=== PATIENT | female | born 1950 | race Caucasian/White ===

== ENCOUNTER 2016-06-21 11:03 | Inpatient (IN) | payer OTHER ==
[~2016-06-21] VITALS: Ht 304.8 cm; Wt 110.1 kg
[~2016-06-21 11:03] MED LIST: AMBIEN CR12.5 MG PO; ATORVASTATIN CA80 MG PO; CLEOCIN300 MG PO; DOXYCYCLINE MO100 MG PO; FERROUS SULFAT325 MG PO; FLORANEX GRANU1 EACH PO; FUROSEMIDE20 MG PO; HYDROCODON-ACE1 EAC7 PO; KEFLEX500 MG PO; LEVOTHYROXINE200 MC1 PO; LISINOPRIL20 MG PO; LYRICA75 MG PO; METFORMIN HCL500 MG PO; MOTRIN400 MG PO; MOTRIN600 MG PO; PEN-VEE K,VEET500 MG PO; ROPINIROLE HCL5 MG PO; ZOLPIDEM TART12.5 MG PO
[2016-06-21 12:34] LABS: HEMATOCRIT 35.1 % (36.0-46.0); MCH 26.9 PG (29.0-34.0); MCHC 32.8 G/DL (30.0-36.0); MCV 82.2 FL (83-99); MEAN PLAT.VOLUME 11.1 uM^3 (9.5-12.4); PLATELET COUNT 133 K/uL (156-360); RBC DIS.WIDTH-CV 14.6 % (11.8-14.6); RBC DIS.WIDTH-SD 42.6 % (39-53); RED BLOOD COUNT 4.27 M/uL (3.80-5.20)
[2016-06-21 12:42] LABS: CHLORIDE 100 mEq/L (99-109); POTASSIUM 3.3 mEq/L (3.7-5.4); SODIUM 139 mEq/L (136-147)
[2016-06-21 12:44] LABS: GLUCOSE 130 mg/dL (70-99)
[2016-06-21 12:45] LABS: ANION GAP 13 MEQ/L (2-14)
[2016-06-21 12:48] LABS: GFR ESTIMATE (CALCULATED) 40 mL/min/; UREA NITROGEN (BUN) 28 mg/dL (9-23)
[2016-06-21 12:55] LABS: TROP-I INTERPRETATION NEGATIVE; TROPONIN-I 0.19 ng/mL (0.0-0.30)
[2016-06-21] MEDS ORDERED: LYRICA75 MG PO (13:19)
[2016-06-21] MEDS ORDERED: METFORMIN HCL500 MG PO (13:22)
[2016-06-21] MEDS ORDERED: MYRBETRIQ50 MG PO (13:25)
[2016-06-21] MEDS ORDERED: LIOTHYRONINE SO5 MCG PO (13:27)
[2016-06-21] MEDS ORDERED: ROPINIROLE PO (13:27)
[2016-06-21] MEDS ORDERED: CYMBALTA60 MG PO (13:56)
[2016-06-21 14:10] LABS: D-DIMER ELISA > 4.00 mg/L FEU (< 0.57)
[2016-06-21 14:48] LABS: TROP-I INTERPRETATION NEGATIVE; TROPONIN-I 0.15 ng/mL (0.0-0.30)
[2016-06-21 17:42] LABS: TOTAL BILIRUBIN 5.7 mg/dL (0.0-1.0)
[2016-06-21 17:43] LABS: ALKALINE PHOSPHATASE 239 IU/L (3-129)
[2016-06-21 17:45] LABS: DIRECT BILIRUBIN 4.1 mg/dL (0.0-0.3)
[2016-06-21 17:46] LABS: LIPASE 2 U/L (1.0-51.0)
[2016-06-21 20:52] LABS: INTER. NORMALIZED RATIO 1.1; PROTHROMBIN TIME 11.1 (9.2-11.2); PTT 26.4 (25-32)
[2016-06-22 01:17] VITALS: BP 156/70
[2016-06-22 06:03] LABS: ALKALINE PHOSPHATASE 203 IU/L (3-129); ANION GAP 8 MEQ/L (2-14); CHLORIDE 101 MEQ/L (99-109); GFR ESTIMATE (CALCULATED) 48 mL/min/; GLUCOSE 112 mg/dL (70-99); MAGNESIUM 1.9 mg/dl (1.3-2.7); POTASSIUM 3.6 MEQ/L (3.7-5.4); SAMPLE HEMOLYSIS CHECK 0; SAMPLE ICTERIC CHECK 1; SAMPLE LIPEMIA CHECK 0; SODIUM 138 MEQ/L (136-147); TOTAL BILIRUBIN 4.8 MG/DL (0.0-1.0); UREA NITROGEN (BUN) 21 mg/dL (9-23)
[2016-06-22 06:15] LABS: HEMATOCRIT 30.7 % (36.0-46.0); MCH 26.3 PG (29.0-34.0); MCHC 31.6 G/DL (30.0-36.0); MCV 83.2 FL (83-99); MEAN PLAT.VOLUME 11.5 uM^3 (9.5-12.4); PLATELET COUNT 122 K/uL (156-360); RBC DIS.WIDTH-CV 14.8 % (11.8-14.6); RBC DIS.WIDTH-SD 45.5 % (39-53); RED BLOOD COUNT 3.69 M/uL (3.80-5.20)
[2016-06-22 06:16] LABS: WHITE BLOOD COUNT 5.5 K/uL (4.1-10.2)
[2016-06-22 07:40] VITALS: BP 154/78
[2016-06-22 16:00] VITALS: BP 159/85
[2016-06-22 17:11] LABS: PROTHROMBIN TIME 10.5 (9.2-11.2); PTT 26.1 (25-32)
[2016-06-22 19:35] VITALS: BP 167/72
[2016-06-22 20:50] LABS: INTER. NORMALIZED RATIO 1.1; PROTHROMBIN TIME 11.3 (9.2-11.2)
[2016-06-22 21:02] LABS: PTT 84.9 (25-32)
[2016-06-22 23:36] VITALS: BP 130/62
[2016-06-23 03:47] VITALS: BP 146/68
[2016-06-23 07:00] VITALS: BP 167/75
[2016-06-23 07:19] VITALS: BP 168/84
[2016-06-23 07:34] LABS: EOSINOPHIL (%) 4.8 % (0-5); EOSINOPHIL COUNT 0.2 K/uL (0-0.3); HEMATOCRIT 32.6 % (36.0-46.0); IMMATURE GRANULOCYTE (%) 0.6 % (0.0-0.7); LYMPHOCYTE COUNT 1.2 K/uL (1.0-2.8); MCH 25.9 PG (29.0-34.0); MCV 83.6 FL (83-99); MEAN PLAT.VOLUME 11.3 uM^3 (9.5-12.4); MONOCYTE (%) 9.4 % (3-12); MONOCYTE COUNT 0.5 K/uL (0-0.8); NEUTROPHIL (%) 60.3 % (45-76); PLATELET COUNT 143 K/uL (156-360); RBC DIS.WIDTH-CV 14.9 % (11.8-14.6); RBC DIS.WIDTH-SD 45.6 % (39-53)
[2016-06-23 08:26] LABS: ALKALINE PHOSPHATASE 212 IU/L (3-129); ANION GAP 15 MEQ/L (2-14); CHLORIDE 94 MEQ/L (99-109); DIRECT BILIRUBIN 3.2 mg/dL (0.0-0.3); GFR ESTIMATE (CALCULATED) 53 mL/min/; GLUCOSE 113 mg/dL (70-99); POTASSIUM 3.2 MEQ/L (3.7-5.4); SAMPLE HEMOLYSIS CHECK 0; SAMPLE ICTERIC CHECK 1; SAMPLE LIPEMIA CHECK 0; SODIUM 137 MEQ/L (136-147); TOTAL BILIRUBIN 4.9 MG/DL (0.0-1.0); UREA NITROGEN (BUN) 14 mg/dL (9-23)
[2016-06-23 08:43] LABS: FERRITIN 261 NG/ML (10-291)
[2016-06-23 09:50] VITALS: BP 154/76
[2016-06-23 11:50] VITALS: BP 168/74
[2016-06-23 17:20] LABS: POINT-OF-CARE METER ID UU13113675
[2016-06-23 20:37] VITALS: BP 152/74
[2016-06-24] VITALS (7 sets, daily range): BP systolic 128–165; BP diastolic 58–75
[2016-06-24 07:55] LABS: HEMATOCRIT 29.1 % (36.0-46.0); MCH 26.8 PG (29.0-34.0); MCV 83.9 FL (83-99); MEAN PLAT.VOLUME 11.8 uM^3 (9.5-12.4); PLATELET COUNT 148 K/uL (156-360); RBC DIS.WIDTH-CV 15.2 % (11.8-14.6); RBC DIS.WIDTH-SD 46.1 % (39-53); RED BLOOD COUNT 3.47 M/uL (3.80-5.20)
[2016-06-24 08:20] LABS: ALKALINE PHOSPHATASE 211 IU/L (3-129); ANION GAP 11 MEQ/L (2-14); CHLORIDE 95 MEQ/L (99-109); GFR ESTIMATE (CALCULATED) 48 mL/min/; GLUCOSE 115 mg/dL (70-99); POTASSIUM 3.6 MEQ/L (3.7-5.4); SAMPLE HEMOLYSIS CHECK 0; SAMPLE ICTERIC CHECK 1; SAMPLE LIPEMIA CHECK 0; SODIUM 139 MEQ/L (136-147); UREA NITROGEN (BUN) 18 mg/dL (9-23)
[2016-06-24 08:24] LABS: TOTAL BILIRUBIN 3.9 MG/DL (0.0-1.0)
[2016-06-25 03:25] VITALS: BP 166/68
[2016-06-25 07:09] LABS: ALKALINE PHOSPHATASE 183 IU/L (3-129); ANION GAP 10 MEQ/L (2-14); CHLORIDE 98 MEQ/L (99-109); EOSINOPHIL (%) 1.1 % (0-5); EOSINOPHIL COUNT 0.1 K/uL (0-0.3); GFR ESTIMATE (CALCULATED) > 59 mL/min/; GLUCOSE 111 mg/dL (70-99); IMMATURE GRANULOCYTE (%) 1.6 % (0.0-0.7); IMMATURE GRANULOCYTE COUNT 0.1 K/uL; LYMPHOCYTE COUNT 0.9 K/uL (1.0-2.8); MCH 26.1 PG (29.0-34.0); MCHC 31.1 G/DL (30.0-36.0); MCV 83.9 FL (83-99); MEAN PLAT.VOLUME 12.2 uM^3 (9.5-12.4); MONOCYTE (%) 4.8 % (3-12); MONOCYTE COUNT 0.4 K/uL (0-0.8); NEUTROPHIL (%) 81.1 % (45-76); NEUTROPHIL COUNT 6.6 K/uL (1.8-6.4); PLATELET COUNT 156 K/uL (156-360); POTASSIUM 4.3 MEQ/L (3.7-5.4); RBC DIS.WIDTH-CV 15.5 % (11.8-14.6); RBC DIS.WIDTH-SD 47.6 % (39-53); RED BLOOD COUNT 3.22 M/uL (3.80-5.20); SAMPLE HEMOLYSIS CHECK 0; SAMPLE ICTERIC CHECK 1; SAMPLE LIPEMIA CHECK 0; SODIUM 139 MEQ/L (136-147); TOTAL BILIRUBIN 3.8 MG/DL (0.0-1.0); UREA NITROGEN (BUN) 15 mg/dL (9-23); WHITE BLOOD COUNT 8.1 K/uL (4.1-10.2)
[2016-06-25 08:03] VITALS: BP 126/69
[2016-06-25 11:52] VITALS: BP 130/60
[2016-06-25 16:16] VITALS: BP 134/63
[2016-06-25 19:45] VITALS: BP 159/65
[2016-06-25 21:14] LABS: POINT-OF-CARE USER ID AHSUCEG
[2016-06-26] VITALS (7 sets, daily range): BP systolic 116–148; BP diastolic 55–68
[2016-06-26 06:12] LABS: HEMATOCRIT 26.6 % (36.0-46.0); MCH 27.2 PG (29.0-34.0); MCV 85.3 FL (83-99); MEAN PLAT.VOLUME 11.6 uM^3 (9.5-12.4); NRBC (%) 0.4 /100 WBC (0-0); PLATELET COUNT 165 K/uL (156-360); RBC DIS.WIDTH-CV 15.8 % (11.8-14.6); RBC DIS.WIDTH-SD 48.6 % (39-53); RED BLOOD COUNT 3.12 M/uL (3.80-5.20); WHITE BLOOD COUNT 5.7 K/uL (4.1-10.2)
[2016-06-26 06:33] LABS: ALKALINE PHOSPHATASE 161 IU/L (3-129); ANION GAP 9 MEQ/L (2-14); CHLORIDE 93 MEQ/L (99-109); GFR ESTIMATE (CALCULATED) > 59 mL/min/; GLUCOSE 89 mg/dL (70-99); POTASSIUM 3.7 MEQ/L (3.7-5.4); SAMPLE HEMOLYSIS CHECK 0; SAMPLE ICTERIC CHECK 1; SAMPLE LIPEMIA CHECK 0; SODIUM 136 MEQ/L (136-147); TOTAL BILIRUBIN 3.8 MG/DL (0.0-1.0); UREA NITROGEN (BUN) 15 mg/dL (9-23)
[2016-06-26 06:39] LABS: MAGNESIUM 1.3 mg/dl (1.3-2.7)
[2016-06-26 06:49] LABS: EOSINOPHIL (%) 1.9 % (0-5); EOSINOPHIL COUNT 0.1 K/uL (0-0.3); IMMATURE GRANULOCYTE (%) 3.9 % (0.0-0.7); IMMATURE GRANULOCYTE COUNT 0.2 K/uL; LYMPHOCYTE COUNT 0.9 K/uL (1.0-2.8); MONOCYTE (%) 7.4 % (3-12); MONOCYTE COUNT 0.4 K/uL (0-0.8); NEUTROPHIL (%) 71.2 % (45-76); NEUTROPHIL COUNT 4.1 K/uL (1.8-6.4)
[2016-06-26 07:38] LABS: HEMATOLOGY COMMENT 1 SMEAR COMPATIBLE; PLAT.SUFFICIENCY ADEQUATE
[2016-06-27 03:12] VITALS: BP 112/53
[2016-06-27 06:53] LABS: HEMATOCRIT 27.8 % (36.0-46.0); MCH 25.8 PG (29.0-34.0); MCHC 30.2 G/DL (30.0-36.0); MCV 85.3 FL (83-99); MEAN PLAT.VOLUME 11.6 uM^3 (9.5-12.4); PLATELET COUNT 209 K/uL (156-360); RBC DIS.WIDTH-SD 49.8 % (39-53); RED BLOOD COUNT 3.26 M/uL (3.80-5.20); WHITE BLOOD COUNT 4.3 K/uL (4.1-10.2)
[2016-06-27 07:18] LABS: ALKALINE PHOSPHATASE 179 IU/L (3-129); ANION GAP 7 MEQ/L (2-14); CHLORIDE 93 MEQ/L (99-109); GFR ESTIMATE (CALCULATED) > 59 mL/min/; GLUCOSE 111 mg/dL (70-99); SAMPLE HEMOLYSIS CHECK 0; SAMPLE ICTERIC CHECK 0; SAMPLE LIPEMIA CHECK 0; SODIUM 136 MEQ/L (136-147); UREA NITROGEN (BUN) 14 mg/dL (9-23)
[2016-06-27 07:19] LABS: POTASSIUM 4.5 MEQ/L (3.7-5.4); TOTAL BILIRUBIN 2.7 MG/DL (0.0-1.0)
[2016-06-27 08:00] VITALS: BP 137/65
[2016-06-27 11:39] VITALS: BP 142/67
[2016-06-27 15:50] VITALS: BP 113/56
[2016-06-27 20:12] VITALS: BP 134/61
[2016-06-28] VITALS (7 sets, daily range): BP systolic 110–131; BP diastolic 56–98
[2016-06-28 07:42] LABS: HEMATOCRIT 26.1 % (36.0-46.0); MCH 26.9 PG (29.0-34.0); MCHC 31.8 G/DL (30.0-36.0); MCV 84.7 FL (83-99); PLATELET COUNT 167 K/uL (156-360); RBC DIS.WIDTH-SD 49.5 % (39-53); RED BLOOD COUNT 3.08 M/uL (3.80-5.20); WHITE BLOOD COUNT 3.6 K/uL (4.1-10.2)
[2016-06-28 08:06] LABS: ALKALINE PHOSPHATASE 170 IU/L (3-129); ANION GAP 8 MEQ/L (2-14); CHLORIDE 91 MEQ/L (99-109); GFR ESTIMATE (CALCULATED) > 59 mL/min/; GLUCOSE 126 mg/dL (70-99); POTASSIUM 3.7 MEQ/L (3.7-5.4); SAMPLE HEMOLYSIS CHECK 0; SAMPLE ICTERIC CHECK 0; SAMPLE LIPEMIA CHECK 0; SODIUM 137 MEQ/L (136-147); UREA NITROGEN (BUN) 12 mg/dL (9-23)
[2016-06-28 08:07] LABS: MAGNESIUM 1.9 mg/dl (1.3-2.7); TOTAL BILIRUBIN 1.8 MG/DL (0.0-1.0)
[2016-06-28 08:49] LABS: EOSINOPHIL (%) 3.9 % (0-5); EOSINOPHIL COUNT 0.1 K/uL (0-0.3); HEMATOLOGY COMMENT 1 SMEAR COMPATIBLE; IMMATURE GRANULOCYTE (%) 2.8 % (0.0-0.7); IMMATURE GRANULOCYTE COUNT 0.1 K/uL; LYMPHOCYTE COUNT 0.9 K/uL (1.0-2.8); MONOCYTE (%) 12.7 % (3-12); MONOCYTE COUNT 0.5 K/uL (0-0.8); NEUTROPHIL (%) 55.9 % (45-76); USER ID STC
[2016-06-28 16:30] LABS: POINT-OF-CARE METER ID UU14162508
[2016-06-28 22:31] LABS: POINT-OF-CARE METER ID UU14162508
[2016-06-29 07:15] LABS: HEMATOCRIT 28.1 % (36.0-46.0); MCH 25.8 PG (29.0-34.0); MCHC 30.2 G/DL (30.0-36.0); MCV 85.4 FL (83-99); MEAN PLAT.VOLUME 11.6 uM^3 (9.5-12.4); PLATELET COUNT 184 K/uL (156-360); RBC DIS.WIDTH-SD 49.9 % (39-53); RED BLOOD COUNT 3.29 M/uL (3.80-5.20)
[2016-06-29 07:36] LABS: ALKALINE PHOSPHATASE 170 IU/L (3-129); ANION GAP 10 MEQ/L (2-14); CHLORIDE 91 MEQ/L (99-109); GFR ESTIMATE (CALCULATED) > 59 mL/min/; GLUCOSE 110 mg/dL (70-99); POTASSIUM 3.9 MEQ/L (3.7-5.4); SAMPLE HEMOLYSIS CHECK 0; SAMPLE ICTERIC CHECK 0; SAMPLE LIPEMIA CHECK 0; SODIUM 139 MEQ/L (136-147); TOTAL BILIRUBIN 1.6 MG/DL (0.0-1.0); UREA NITROGEN (BUN) 9 mg/dL (9-23)
[2016-06-29 08:04] VITALS: BP 144/66
[2016-06-29 08:14] LABS: HEMATOLOGY COMMENT 1 SMEAR COMPATIBLE
[2016-06-29 08:15] LABS: EOSINOPHIL (%) 3.3 % (0-5); EOSINOPHIL COUNT 0.1 K/uL (0-0.3); IMMATURE GRANULOCYTE (%) 2.5 % (0.0-0.7); IMMATURE GRANULOCYTE COUNT 0.1 K/uL; LYMPHOCYTE COUNT 0.9 K/uL (1.0-2.8); MONOCYTE (%) 10.3 % (3-12); MONOCYTE COUNT 0.4 K/uL (0-0.8); NEUTROPHIL (%) 60.7 % (45-76); NEUTROPHIL COUNT 2.4 K/uL (1.8-6.4)
[2016-06-29 11:16] VITALS: BP 117/59
[2016-06-29 11:34] LABS: POINT-OF-CARE METER ID UU14162508
[2016-06-29 16:30] VITALS: BP 129/64
[2016-06-29 17:59] LABS: POINT-OF-CARE METER ID UU14162508
[2016-06-29 19:56] VITALS: BP 126/60
[2016-06-30] VITALS (7 sets, daily range): BP systolic 103–146; BP diastolic 51–65
[2016-06-30 00:07] LABS: POINT-OF-CARE METER ID UU14162508
[2016-06-30 01:40] LABS: INTER. NORMALIZED RATIO 1.1; PROTHROMBIN TIME 10.9 (9.2-11.2); PTT 28.3 (25-32)
[2016-06-30 06:21] LABS: POINT-OF-CARE METER ID UU14162508
[2016-06-30 06:58] LABS: HEMATOCRIT 25.6 % (36.0-46.0); MCH 26.2 PG (29.0-34.0); MCHC 30.9 G/DL (30.0-36.0); MCV 84.8 FL (83-99); MEAN PLAT.VOLUME 11.3 uM^3 (9.5-12.4); NRBC (%) 0.3 /100 WBC (0-0); PLATELET COUNT 189 K/uL (156-360); RBC DIS.WIDTH-CV 16.1 % (11.8-14.6); RBC DIS.WIDTH-SD 50.5 % (39-53); RED BLOOD COUNT 3.02 M/uL (3.80-5.20)
[2016-06-30 07:14] LABS: EOSINOPHIL COUNT 0.1 K/uL (0-0.3); IMMATURE GRANULOCYTE (%) 2.6 % (0.0-0.7); IMMATURE GRANULOCYTE COUNT 0.1 K/uL; LYMPHOCYTE COUNT 1.1 K/uL (1.0-2.8); MONOCYTE (%) 9.8 % (3-12); MONOCYTE COUNT 0.5 K/uL (0-0.8); NEUTROPHIL (%) 64.1 % (45-76); NEUTROPHIL COUNT 3.2 K/uL (1.8-6.4)
[2016-06-30 07:21] LABS: ALKALINE PHOSPHATASE 159 IU/L (3-129); ANION GAP 7 MEQ/L (2-14); CHLORIDE 92 MEQ/L (99-109); GFR ESTIMATE (CALCULATED) > 59 mL/min/; GLUCOSE 125 mg/dL (70-99); POTASSIUM 3.7 MEQ/L (3.7-5.4); SAMPLE HEMOLYSIS CHECK 0; SAMPLE ICTERIC CHECK 0; SAMPLE LIPEMIA CHECK 0; SODIUM 136 MEQ/L (136-147); TOTAL BILIRUBIN 1.3 MG/DL (0.0-1.0); UREA NITROGEN (BUN) 9 mg/dL (9-23)
[2016-06-30 08:08] LABS: HEMATOLOGY COMMENT 1 SMEAR COMPATIBLE; PLAT.SUFFICIENCY ADEQUATE; USER ID TLW
[2016-06-30 14:45] LABS: MCV 86.3 FL (83-99)
[2016-06-30 15:55] LABS: POINT-OF-CARE METER ID UU14162508
[2016-06-30 21:26] LABS: POINT-OF-CARE METER ID UU14162508
[2016-07-01 03:54] VITALS: BP 117/55
[2016-07-01 04:23] LABS: HEMATOCRIT 27.4 % (36.0-46.0); MCH 26.1 PG (29.0-34.0); MCHC 30.3 G/DL (30.0-36.0); MCV 86.2 FL (83-99); MEAN PLAT.VOLUME 11.3 uM^3 (9.5-12.4); PLATELET COUNT 205 K/uL (156-360); RBC DIS.WIDTH-CV 15.9 % (11.8-14.6); RBC DIS.WIDTH-SD 48.9 % (39-53); RED BLOOD COUNT 3.18 M/uL (3.80-5.20); WHITE BLOOD COUNT 4.5 K/uL (4.1-10.2)
[2016-07-01 04:33] LABS: CHLORIDE 94 mEq/L (99-109); POTASSIUM 3.9 mEq/L (3.7-5.4); SODIUM 138 mEq/L (136-147)
[2016-07-01 04:36] LABS: GLUCOSE 167 mg/dL (70-99)
[2016-07-01 04:37] LABS: ANION GAP 9 MEQ/L (2-14); TOTAL BILIRUBIN 1.1 mg/dL (0.0-1.0)
[2016-07-01 04:39] LABS: ALKALINE PHOSPHATASE 172 IU/L (3-129); GFR ESTIMATE (CALCULATED) > 59 mL/min/
[2016-07-01 04:40] LABS: UREA NITROGEN (BUN) 11 mg/dL (9-23)
[2016-07-01 05:33] LABS: EOSINOPHIL (%) 3.1 % (0-5); EOSINOPHIL COUNT 0.1 K/uL (0-0.3); HEMATOLOGY COMMENT 1 REV; IMMATURE GRANULOCYTE (%) 3.6 % (0.0-0.7); IMMATURE GRANULOCYTE COUNT 1.6 K/uL; LYMPHOCYTE COUNT 1.4 K/uL (1.0-2.8); MONOCYTE (%) 8.9 % (3-12); MONOCYTE COUNT 0.4 K/uL (0-0.8); NEUTROPHIL (%) 53.4 % (45-76); NEUTROPHIL COUNT 2.4 K/uL (1.8-6.4); USER ID SLU
[2016-07-01 06:53] LABS: POINT-OF-CARE METER ID UU14162508
[2016-07-01 08:00] VITALS: BP 117/58
[2016-07-01 11:00] VITALS: BP 124/66
[2016-07-01 16:00] VITALS: BP 117/62
[2016-07-01 19:30] VITALS: BP 112/58
[2016-07-01 21:51] LABS: POINT-OF-CARE METER ID UU14162508
[2016-07-02 00:16] VITALS: BP 115/57
[2016-07-02 03:42] VITALS: BP 120/59
[2016-07-02 07:47] VITALS: BP 118/63
[2016-07-02 08:28] LABS: MCH 25.6 PG (29.0-34.0); MCV 86.3 FL (83-99); RED BLOOD COUNT 3.36 M/uL (3.80-5.20); WHITE BLOOD COUNT 5.3 K/uL (4.1-10.2)
[2016-07-02 08:29] LABS: MCHC 29.7 G/DL (30.0-36.0); PLATELET COUNT 238 K/uL (156-360); RBC DIS.WIDTH-CV 16.3 % (11.8-14.6); RBC DIS.WIDTH-SD 51.1 % (39-53)
[2016-07-02 09:08] LABS: ABS NEUTROPHIL COUNT 3.64; ANISOCYTOSIS 1+; EOSINOPHIL (%) 3.2 % (0-5); EOSINOPHIL ABS CT 0.16; EOSINOPHIL COUNT 0.2 K/uL (0-0.3); HYPOCHROMASIA 1+; IMMATURE GRANULOCYTE (%) 2.3 % (0.0-0.7); IMMATURE GRANULOCYTE COUNT 0.1 K/uL; LYMPHOCYTE COUNT 1.5 K/uL (1.0-2.8); MONOCYTE (%) 6.3 % (3-12); MONOCYTE COUNT 0.3 K/uL (0-0.8); NEUTROPHIL (%) 58.6 % (45-76); NEUTROPHIL COUNT 3.1 K/uL (1.8-6.4); OVALOCYTES OCC; PLAT.SUFFICIENCY ADEQUATE; POLYCHROMASIA 1+; USER ID MCB
[2016-07-02 09:37] LABS: ANION GAP 9 MEQ/L (2-14); CHLORIDE 97 MEQ/L (99-109); POTASSIUM 4.4 MEQ/L (3.7-5.4); SAMPLE HEMOLYSIS CHECK 0; SAMPLE ICTERIC CHECK 0; SAMPLE LIPEMIA CHECK 0; SODIUM 140 MEQ/L (136-147); TOTAL BILIRUBIN 1.3 MG/DL (0.0-1.0)
[2016-07-02 10:11] LABS: ALKALINE PHOSPHATASE 161 IU/L (3-129); GFR ESTIMATE (CALCULATED) > 59 mL/min/; GLUCOSE 147 mg/dL (70-99); UREA NITROGEN (BUN) 10 mg/dL (9-23)
[2016-07-02 11:27] LABS: POINT-OF-CARE METER ID UU14162508
[2016-07-02 12:00] VITALS: BP 107/59; BP 152/81
[2016-07-02 15:10] VITALS: BP 139/66
[2016-07-03 00:21] VITALS: BP 162/70
[2016-07-03 06:47] LABS: MCH 26.5 PG (29.0-34.0); MCHC 30.7 G/DL (30.0-36.0); MCV 86.3 FL (83-99); MEAN PLAT.VOLUME 11.2 uM^3 (9.5-12.4); PLATELET COUNT 276 K/uL (156-360); RBC DIS.WIDTH-CV 16.4 % (11.8-14.6); RBC DIS.WIDTH-SD 51.4 % (39-53); RED BLOOD COUNT 3.36 M/uL (3.80-5.20); WHITE BLOOD COUNT 5.5 K/uL (4.1-10.2)
[2016-07-03 07:11] LABS: EOSINOPHIL (%) 2.9 % (0-5); EOSINOPHIL COUNT 0.2 K/uL (0-0.3); IMMATURE GRANULOCYTE (%) 0.9 % (0.0-0.7); IMMATURE GRANULOCYTE COUNT 0.1 K/uL; LYMPHOCYTE COUNT 1.5 K/uL (1.0-2.8); MONOCYTE (%) 4.2 % (3-12); MONOCYTE COUNT 0.2 K/uL (0-0.8); NEUTROPHIL (%) 64.7 % (45-76); NEUTROPHIL COUNT 3.6 K/uL (1.8-6.4)
[2016-07-03 07:14] LABS: ALKALINE PHOSPHATASE 174 IU/L (3-129); ANION GAP 9 MEQ/L (2-14); CHLORIDE 98 MEQ/L (99-109); GFR ESTIMATE (CALCULATED) > 59 mL/min/; GLUCOSE 125 mg/dL (70-99); SAMPLE HEMOLYSIS CHECK 0; SAMPLE ICTERIC CHECK 0; SAMPLE LIPEMIA CHECK 0; SODIUM 140 MEQ/L (136-147); TOTAL BILIRUBIN 1.3 MG/DL (0.0-1.0); UREA NITROGEN (BUN) 9 mg/dL (9-23)
[2016-07-03 07:30] VITALS: BP 157/70
[2016-07-03 15:15] VITALS: BP 154/67
[2016-07-03 15:41] LABS: C DIFF TOXIN POSITIVE (NEGATIVE)
[2016-07-03 15:54] LABS: PROBE CHECK PASS
[2016-07-03 21:00] VITALS: BP 145/78
[2016-07-03 21:08] LABS: POINT-OF-CARE USER ID AHSUCEG
[2016-07-04 00:10] VITALS: BP 145/78
[2016-07-04 04:00] VITALS: BP 154/78
[2016-07-04 07:07] LABS: HEMATOCRIT 25.1 % (36.0-46.0); MCHC 31.5 G/DL (30.0-36.0); MCV 85.7 FL (83-99); PLATELET COUNT 258 K/uL (156-360); RBC DIS.WIDTH-CV 16.5 % (11.8-14.6); RBC DIS.WIDTH-SD 50.9 % (39-53); RED BLOOD COUNT 2.93 M/uL (3.80-5.20); WHITE BLOOD COUNT 4.9 K/uL (4.1-10.2)
[2016-07-04 07:35] LABS: EOSINOPHIL (%) 2.6 % (0-5); EOSINOPHIL COUNT 0.1 K/uL (0-0.3); IMMATURE GRANULOCYTE (%) 0.8 % (0.0-0.7); LYMPHOCYTE COUNT 1.3 K/uL (1.0-2.8); MONOCYTE (%) 6.5 % (3-12); MONOCYTE COUNT 0.3 K/uL (0-0.8); NEUTROPHIL (%) 63.3 % (45-76); NEUTROPHIL COUNT 3.1 K/uL (1.8-6.4)
[2016-07-04 07:44] LABS: ANION GAP 7 MEQ/L (2-14); CHLORIDE 100 MEQ/L (99-109); GFR ESTIMATE (CALCULATED) > 59 mL/min/; GLUCOSE 125 mg/dL (70-99); POTASSIUM 4.4 MEQ/L (3.7-5.4); SAMPLE HEMOLYSIS CHECK 0; SAMPLE ICTERIC CHECK 0; SAMPLE LIPEMIA CHECK 0; SODIUM 140 MEQ/L (136-147); UREA NITROGEN (BUN) 10 mg/dL (9-23)
[2016-07-04 08:02] LABS: ALKALINE PHOSPHATASE 130 IU/L (3-129)
[2016-07-04 08:03] VITALS: BP 145/72
[2016-07-04 11:21] LABS: POINT-OF-CARE METER ID UU14162508
[2016-07-04 15:52] VITALS: BP 142/70
[2016-07-04 16:01] LABS: POINT-OF-CARE METER ID UU14162508
[2016-07-04 22:04] LABS: POINT-OF-CARE METER ID UU14162508
[2016-07-05 00:05] VITALS: BP 137/60
[2016-07-05 06:37] LABS: MCH 26.1 PG (29.0-34.0); MCHC 30.8 G/DL (30.0-36.0); MCV 84.7 FL (83-99); RBC DIS.WIDTH-CV 16.5 % (11.8-14.6); RBC DIS.WIDTH-SD 50.2 % (39-53); RED BLOOD COUNT 3.07 M/uL (3.80-5.20); WHITE BLOOD COUNT 5.9 K/uL (4.1-10.2)
[2016-07-05 07:08] LABS: ANION GAP 7 MEQ/L (2-14); CHLORIDE 102 MEQ/L (99-109); GFR ESTIMATE (CALCULATED) 53 mL/min/; GLUCOSE 117 mg/dL (70-99); MAGNESIUM 1.9 mg/dl (1.3-2.7); POTASSIUM 4.4 MEQ/L (3.7-5.4); SAMPLE HEMOLYSIS CHECK 0; SAMPLE ICTERIC CHECK 0; SAMPLE LIPEMIA CHECK 0; SODIUM 140 MEQ/L (136-147); UREA NITROGEN (BUN) 10 mg/dL (9-23)
[2016-07-05 07:45] VITALS: BP 131/69
[2016-07-05 10:17] LABS: MEAN PLAT.VOLUME 10.2 uM^3 (9.5-12.4); PLATELET COUNT 277 K/uL (156-360)
[2016-07-05 12:00] VITALS: BP 139/69
[2016-07-05] MEDS ORDERED: METRONIDAZOLE500 MG PO (14:53)
[2016-07-05] MEDS ORDERED: XARELTO15 MG PO (14:57)
[2016-07-05 15:05] VITALS: BP 132/62
[2016-07-06 09:50] LABS: THROMBIN TIME+ 97 sec (13-19)
[2016-07-06 18:33] LABS: ANTITHROMBIN III ACTIVITY+ 100 % activi (80-120); DRVVT Mixing Study Interp Not Indicated (()); PROTEIN C FUNCTIONAL ACTIVITY+ 194 % (70-180); PTT-LA 69 sec (<=40); PTT-LA Reflex Has been added (()); Protein S, Free 103 % normal (50-147); Thrombosis Consult Level Limited (()); dRVVT Screen 43 sec (<=45)
== END 2016-07-05 18:41 | DRG 414 ==
LOC: EME 11:03 → EDOF 19:34 → 2EAST 19:34
PROVIDERS: Anesthesiology; Family Medicine; Hospitalist; Internal Medicine; Nurse Practitioner Family; Physician Assistant Medical; Surgery; Thoracic Surgery (Cardiothoracic Vascular Surgery)
PROC: 0HD8XZZ Extraction of Buttock Skin, External Approach (ICD-10-PCS; 2016-06-22)
PROC: 0HD6XZZ Extraction of Back Skin, External Approach (ICD-10-PCS; 2016-06-22)
PROC: 0FB40ZZ Excision of Gallbladder, Open Approach (ICD-10-PCS; principal; 2016-06-23)
PROC: 0FJ44ZZ Inspection of Gallbladder, Percutaneous Endoscopic Approach (ICD-10-PCS; principal; 2016-06-23)
PROC: 0HB8XZZ Excision of Buttock Skin, External Approach (ICD-10-PCS; 2016-06-24)
PROC: 0HB6XZZ Excision of Back Skin, External Approach (ICD-10-PCS; 2016-06-24)
DX: K80.12 Calculus of gallbladder with acute and chronic cholecystitis without obstruction (principal); J96.01 Acute respiratory failure with hypoxia; I26.99 Other pulmonary embolism without acute cor pulmonale; J18.9 Pneumonia, unspecified organism; A04.7 Enterocolitis due to Clostridium difficile; K66.0 Peritoneal adhesions (postprocedural) (postinfection); T21.24XA Burn of second degree of lower back, initial encounter; T21.25XA Burn of second degree of buttock, initial encounter; X16.XXXA Contact with hot heating appliances, radiators and pipes, initial encounter; E87.6 Hypokalemia; G25.81 Restless legs syndrome; I12.9 Hypertensive chronic kidney disease with stage 1 through stage 4 chronic kidney disease, or unspecified chronic kidney disease; E11.22 Type 2 diabetes mellitus with diabetic chronic kidney disease; N18.3 Chronic kidney disease, stage 3 (moderate); E78.5 Hyperlipidemia, unspecified; E89.0 Postprocedural hypothyroidism; I87.2 Venous insufficiency (chronic) (peripheral); I89.0 Lymphedema, not elsewhere classified; D69.6 Thrombocytopenia, unspecified; D50.9 Iron deficiency anemia, unspecified; G47.33 Obstructive sleep apnea (adult) (pediatric); E66.01 Morbid (severe) obesity due to excess calories; Z68.42 Body mass index [BMI] 45.0-49.9, adult; Z85.850 Personal history of malignant neoplasm of thyroid; Z96.653 Presence of artificial knee joint, bilateral
CPT/HCPCS: 71010; 71020; 71250; 71275; 74000; 74176; 74181; 76705; 78582; 80048; 80053; 80076; 81003; 81240 90; 82247; 82565; 82607; 82728; 82746; 82948; 83090 90; 83690; 83735; 83880; 84466; 84484; 84520; 85014; 85018; 85025; 85027; 85240 90; 85300 90; 85303 90; 85305 90; 85306 90; 85307 90; 85379; 85610; 85613 90; 85670 90; 85730; 85730 90; 86146 90; 86147 90; 87493; 88304; 93005; 93306; 93970; 94010; 94640; 94640 76; 94667; 94668; 94760; 94799; 97530 GO; 97530 GP; 99202; 99281; 99285; A9540; A9567; J0330; J0690; J0696; J1100; J1170; J1644; J1815; J1940; J2405; J2543; J2710; J3010; J3420; J3475; J3480; J7030; J7042; J7050; J7120; S0028